=== PATIENT | female | born 1960 | race Caucasian/White ===

== ENCOUNTER 2018-04-07 20:42 | Emergency (ER) | payer SELFPAY ==
[~2018-04-07] VITALS: Ht 162.6 cm; Wt 67.4 kg
[~2018-04-07 20:42] MED LIST: ALEVE220 M2 PO; CELEXA40 MG PO; KEPPRA1000 MG PO; NORVASC10 MG PO; ZANTAC150 MG PO
[2018-04-07 22:04] LABS: HEMATOCRIT 35.6 % (36.0-46.0); HEMOGLOBIN 12.8 G/DL (11.9-15.5); MCH 35.2 PG (29.0-34.0); MCV 97.8 FL (83-99); PLATELET COUNT 184 K/uL (156-360); RBC DIS.WIDTH-CV 14.4 % (11.8-14.6); RBC DIS.WIDTH-SD 51.8 % (39-53); RED BLOOD COUNT 3.64 M/uL (3.80-5.20); WHITE BLOOD COUNT 11.7 K/uL (4.1-10.2)
[2018-04-07 22:31] LABS: CHLORIDE 93 mEq/L (99-109); POTASSIUM 4.9 mEq/L (3.7-5.4); SODIUM 130 mEq/L (136-147)
[2018-04-07 22:33] LABS: GLUCOSE 92 mg/dL (70-99)
[2018-04-07 22:37] LABS: CREATININE 0.7 mg/dL (0.6-1.3); GFR ESTIMATE (CALCULATED) > 59 mL/min/
[2018-04-07 22:38] LABS: UREA NITROGEN (BUN) 12 mg/dL (9-23)
[2018-04-07 23:23] LABS: APPEARANCE SL.HAZY ((CLEAR)); BILIRUBIN NEGATIVE; BLOOD SMALL; COLOR YELLOW ((YELLOW)); GLUCOSE (STRIP) NEGATIVE; KETONES 20; LEUKOCYTES NEGATIVE; NITRITE NEGATIVE; PROTEIN (STRIP) 100; SPECIFIC GRAVITY 1.014 (1.000-1.030)
[2018-04-07 23:28] LABS: BACTERIA NONE SEEN /HPF; EPITHELIAL CELLS 1+ /HPF; HYALINE CASTS TNTC /LPF; MUCUS TRACE /LPF; UCUL ADDED? YES
[2018-04-07] MEDS ORDERED: KEPPRA1000 MG PO (23:28)
[2018-04-07 23:59] VITALS: BP 155/85
== END 2018-04-08 00:10 | disposition home or self-care (01) ==
LOC: EME → EDBD 20:42 → EME 20:42
PROVIDERS: Emergency Medicine
DX: G40.909 Epilepsy, unspecified, not intractable, without status epilepticus (principal); I10 Essential (primary) hypertension; F32.9 Major depressive disorder, single episode, unspecified; F17.200 Nicotine dependence, unspecified, uncomplicated; Z88.0 Allergy status to penicillin; Z88.1 Allergy status to other antibiotic agents
CPT/HCPCS: 80048; 81003; 85027; 87086; 99281; 99284